=== PATIENT | female | born 1990 | race Caucasian/White ===

== ENCOUNTER 2016-08-26 21:47 | Emergency (ER) | payer BC ==
[2016-08-27 01:03] VITALS: BP 109/66
== END 2016-08-27 01:03 | disposition home or self-care (01) ==
LOC: ED 21:47
DX: K52.9 Noninfective gastroenteritis and colitis, unspecified (principal)
CPT/HCPCS: J2405; J7030

== ENCOUNTER → 2016-08-27 | Outpatient (CLI) | payer BC | LOC: LAB 09:56 | DX: R11.2 Nausea with vomiting, unspecified (principal) ==

== ENCOUNTER 2020-10-03 02:00 | Emergency (ER) | payer BC ==
[2020-10-03] MEDS ORDERED: PRENATAL 19 CH1 EACH PO (02:30)
[2020-10-03 02:37] LABS: HEMATOCRIT 42.6 % (37.0-47.0); HEMOGLOBIN 14.6 g/dL (12.5-16.0); MEAN CELL VOLUME 89 fl (78-100); MEAN CORPUSCULAR HEMOGLOBIN 31 pg (27-31); MEAN CORPUSCULAR HGB CONC 34 g/dL (33-37); MEAN PLATELET VOLUME 9.7 fl (7.4-10.4); PLATELET COUNT 320 K/mm3 (130-400); RED BLOOD COUNT 4.78 M/mm3 (4.10-5.30); RED CELL DISTRIBUTION WIDTH 12.5 % (11.5-14.5); WHITE BLOOD COUNT 12.3 K/mm3 (4.8-10.8)
[2020-10-03 02:39] LABS: POTASSIUM 4.1 mmol/L (3.5-5.1)
[2020-10-03 02:40] LABS: CALCIUM 9.5 mg/dL (8.3-10.5)
[2020-10-03 02:41] LABS: TOTAL PROTEIN 8.1 g/dL (6.4-8.3)
[2020-10-03 02:43] LABS: TOTAL BILIRUBIN 0.7 mg/dL (0.2-1.2)
[2020-10-03 02:59] LABS: LYMPHOCYTE 8 % (20-51); MONOCYTE 7 % (3-10); NEUTROPHILS 84 % (42-75)
[2020-10-03] MEDS ORDERED: ONDANSETRON ODT8 MG PO (03:42)
[2020-10-03 04:01] LABS: PH-URINE 6.5 (5.0 - 8.0); URINE APPEARANCE HAZY; URINE COLOR YELLOW
[2020-10-03 04:02] LABS: URINE BILIRUBIN NEGATIVE (NEGATIVE); URINE BLOOD NEGATIVE (NEGATIVE); URINE GLUCOSE NEGATIVE (NEGATIVE); URINE KETONE 1+ (NEGATIVE); URINE LEUKOCYTE ESTERASE NEGATIVE (NEGATIVE); URINE MUCUS PRESENT (NOT PRESENT); URINE NITRATE NEGATIVE (NEGATIVE); URINE PROTEIN(semi-quant) NEGATIVE (NEGATIVE); URINE UROBILINOGEN NORMAL (NORMAL); URINE WBC 0-1 /hpf (0-3)
[2020-10-03 06:08] VITALS: BP 104/62
== END 2020-10-03 06:08 | disposition home or self-care (01) ==
LOC: ED 02:00
PROVIDERS: Nurse Practitioner Family
DX: K52.9 Noninfective gastroenteritis and colitis, unspecified (principal); Z32.02 Encounter for pregnancy test, result negative
CPT/HCPCS: J2405; J2550; J7030; Q9967